=== PATIENT | male | born 1955 | race Asian ===

== ENCOUNTER 2017-05-03 12:04 | Day surgery (SDC) | payer OTHER ==
[~2017-05-03] VITALS: Ht 165.1 cm; Wt 65.2 kg
[2017-05-03 13:17] VITALS: Ht 165.1 cm; Wt 65.2 kg
[2017-05-03] MEDS ORDERED: MIDAZOLAM 1 MG/ML 2 ML INJ ONE ×2 (15:02→15:03)
[2017-05-03] MEDS ORDERED: FENTAnyl 50 MCG/ML VIAL ONE (15:02)
--- NOTE | 2017-05-03 15:03 | OPPN ---
Date/Time of Note Date/Time of Note DATE: 05/03/17 TIME: 14:56 Proc Note GI Procedure Date 05/03/17 Pre-procedure Diagnosis * Colorectal cancer screening Post-procedure Diagnosis Impression: * 2 cm pedunculated polyp in the distal sigmoid. Post snare polypectomy and retrieval plus Endo Clip placement plus localization tattoo * 4 mm sessile polyp mid ascending colon. Ablated * Moderate-sized internal hemorrhoids * Otherwise normal colonoscopy Plan: * Review pathology as soon as available * Follow-up as previously scheduled * Annual Hemoccult stool testing * Surveillance colonoscopy in 3-5 years pending review pathology . Procedure Performed: Colonoscopy (Plus ablation. Colonoscopy with snare polypectomy plus tattoo+ Endo Clip placement) Surgeon TWAN GALLOWAY MD Sewer none Anesthesia Type: moderate sedation (Versed 4 mg/fentanyl 50 mcg) Tourniquet Time none EBL none Transfusion required none Biopsy 1: none Polyp 1: Ascending colon Polyp 2: Distal sigmoid colon Grafts/Implants none Tubes/Drains none Complication(s) none Pt Condition post procedure: stable Disposition: home Procedure Description After informed consent, with the patient/relatives understanding the procedure, its indications and potential risks and complications, including but not limited to: Allergic reaction, bleeding, perforation, infection, and after all pertinent questions were answered to the patient's satisfaction, the patient/ relatives signed the witnessed informed consent. Following this, premedication was administered slowly IV push under careful cardiovascular and respiratory monitoring with pulse [employer], automatic blood pressure, and monitoring engineer. Once the sedative effect was achieved, the patient was placed in the left lateral decubitus position, digital rectal examination was performed. The colonoscope was then introduced and advanced under visual control throughout all segments of the colon including: the rectum, sigmoid, descending colon, splenic flexure, transverse colon, hepatic flexure, ascending colon and finally reaching the cecum which was clearly identified by transillumination, finger indentation and the ileocecal valve. Careful examination of the mucosa of the lower gastrointestinal tract both on insertion as well as withdrawal of the instrument disclosed the following findings: PREPARATION QUALITY: [Adequate], RECTAL EXAM: The anorectal area was visualized examined and digital rectal examination performed with the following findings: Moderate-sized external hemorrhoids. Otherwise no evidence of perirectal disease, no masses. COLONIC MUCOSA: The mucosa of all segments of the colon was carefully examined and showed the following findings: There is a large 2 cm polyp in the sigmoid colon with a long pedicle. The polyp was removed with polypectomy snare and retrieved the area received localization tattoo and an Endo Clip was applied to the polyp stalk. A 4 mm sessile polyp was noted in the mid ascending colon. Ablated with biopsy forceps. Moderate-sized internal hemorrhoids are present. Otherwise the examined mucosa appears within normal limits. There is no evidence of inflammatory changes, diverticular formation, other neoplasms, vascular malformation, or any other abnormality. The instrument was then withdrawn, the patient tolerated the procedure well and was transferred out of the Endoscopy Suite awake and in good condition to continue recovery under observation. Copies To: CC: TWAN GALLOWAY MD, MORDO MD May 03, 2017 15:03
[2017-05-03 15:19] VITALS: BP 114/83; RESP 14
== END 2017-05-03 16:23 | disposition home or self-care (01) ==
LOC: GIL 12:04
PROVIDERS: ATTEND Internal Medicine Gastroenterology
DX: Z12.11 Encounter for screening for malignant neoplasm of colon (principal); K63.5 Polyp of colon; K64.8 Other hemorrhoids
CPT/HCPCS: 45380; 88305; J2250; J3010; Z7610